=== PATIENT | male | born 1960 | race Caucasian/White ===

== ENCOUNTER 2016-12-19 15:41 | Emergency (ER) | payer OTHER ==
[~2016-12-19] VITALS: Ht 170.2 cm; Wt 71.0 kg
[~2016-12-19 15:41] MED LIST: ANTI-INFLAMMATORY; ASPIR 8181 M1 PO; BACTRIM,SEPT1 TABLET PO; CALCIUM CARB1 TABLET PO; CHOLESTYRAMINE P4 GM PO; CIPROFLOXACIN500 M1 PO; CLINDAMYCIN HC300 MG PO; FAMOTIDINE20 MG PO; FOLIC ACID1 MG PO; HYDROCODON-ACE1 EAC7 PO; KEFLEX500 MG PO; LEVAQUIN500 MG PO; MAG-OXIDE400 MG PO; METRONIDAZOLE500 MG PO; MOTRIN800 MG PO; NAPROSYN500 MG PO; NAPROXEN500 MG PO; NEURONTIN300 MG PO; NICOTINE PATCH1 EAC2 TD; NORCO 5/3251 TABLET PO; POTASSIUM CHLO20 ME1 PO; THERAGRAN1 TABLET PO; TRAMADOL HCL50 MG PO; VANCOCIN HCL125 MG PO; VITAMIN B-1100 MG PO; denies home meds
[2016-12-19 16:19] LABS: HEMATOCRIT 40.4 % (38.0-50.0); MCH 31.8 PG (29.0-34.0); MCHC 34.4 G/DL (30.0-36.0); MCV 92.4 FL (86-99); MEAN PLAT.VOLUME 8.4 uM^3 (9.0-12.4); PLATELET COUNT 229 K/uL (156-360); RBC DIS.WIDTH-CV 12.9 % (11.8-14.6); RBC DIS.WIDTH-SD 42.6 % (39-53); RED BLOOD COUNT 4.37 M/uL (4.00-5.50); WHITE BLOOD COUNT 5.1 K/uL (4.1-10.2)
[2016-12-19 16:31] LABS: CHLORIDE 101 mEq/L (99-109); POTASSIUM 4.1 mEq/L (3.7-5.4); SODIUM 142 mEq/L (136-147)
[2016-12-19 16:32] LABS: GLUCOSE 143 mg/dL (70-99)
[2016-12-19 16:34] LABS: ANION GAP 15 MEQ/L (2-14)
[2016-12-19 16:36] LABS: GFR ESTIMATE (CALCULATED) > 59 mL/min/
[2016-12-19 16:37] LABS: UREA NITROGEN (BUN) 7 mg/dL (9-23)
[2016-12-19 16:40] LABS: TROP-I INTERPRETATION NEGATIVE; TROPONIN-I 0.02 ng/mL (0.0-0.30)
[2016-12-19 17:40] VITALS: BP 124/70
== END 2016-12-19 18:14 | disposition home or self-care (01) ==
LOC: EME → EDBD 15:41 → EME 15:41
PROVIDERS: Emergency Medicine
DX: R07.89 Other chest pain (principal); F10.229 Alcohol dependence with intoxication, unspecified; Z91.14 Patient's other noncompliance with medication regimen
CPT/HCPCS: 71020; 80048; 83880; 84484; 85027; 93005; 99281; 99285

== ENCOUNTER 2017-01-15 12:15 | Inpatient (IN) | payer OTHER ==
[~2017-01-15] VITALS: Ht 170.2 cm; Wt 51.8 kg
[2017-01-15 13:24] LABS: EOSINOPHIL (%) 0.3 % (0-5); HEMATOCRIT 39.7 % (38.0-50.0); IMMATURE GRANULOCYTE (%) 0.2 % (0.0-0.7); INSTRUMENT ABS NEUTROPHIL CT 4.6 K/uL; LYMPHOCYTE COUNT 1.4 K/uL (1.0-2.8); MCH 32.1 PG (29.0-34.0); MCV 94.5 FL (86-99); MONOCYTE (%) 6.9 % (3-12); MONOCYTE COUNT 0.5 K/uL (0-0.8); NEUTROPHIL COUNT 4.6 K/uL (1.8-6.4); PLATELET COUNT 182 K/uL (156-360); RBC DIS.WIDTH-CV 12.5 % (11.8-14.6); RBC DIS.WIDTH-SD 43.6 % (39-53); WHITE BLOOD COUNT 6.5 K/uL (4.1-10.2)
[2017-01-15 13:34] LABS: CHLORIDE 97 mEq/L (99-109); POTASSIUM 3.5 mEq/L (3.7-5.4); SODIUM 139 mEq/L (136-147)
[2017-01-15 13:35] LABS: MAGNESIUM 2.2 mg/dL (1.3-2.7)
[2017-01-15 13:36] LABS: D-DIMER ELISA 1.31 mg/L FEU (< 0.57); GLUCOSE 103 mg/dL (70-99); PROTHROMBIN TIME 10.1 (9.2-11.2); PTT 28.4 (25-32)
[2017-01-15 13:37] LABS: ANION GAP 19 MEQ/L (2-14)
[2017-01-15 13:39] LABS: SERUM ETHYL ALCOHOL 333 mg/dL
[2017-01-15 13:40] LABS: GFR ESTIMATE (CALCULATED) > 59 mL/min/
[2017-01-15 13:41] LABS: UREA NITROGEN (BUN) 11 mg/dL (9-23)
[2017-01-15 13:45] LABS: TROP-I INTERPRETATION NEGATIVE; TROPONIN-I 0.03 ng/mL (0.0-0.30)
[2017-01-15] MEDS ORDERED: HYDROCODON-ACE1 EAC9 PO (18:14)
[2017-01-15] MEDS ORDERED: GABAPENTIN600 MG PO (18:14)
[2017-01-15] MEDS ORDERED: LO-DOSE ASPIRIN81 M2 PO (18:14)
[2017-01-15 21:48] LABS: TROP-I INTERPRETATION NEGATIVE; TROPONIN-I 0.02 ng/mL (0.0-0.30)
[2017-01-15 22:30] VITALS: BP 145/75
[2017-01-15 22:49] LABS: HDL CHOLESTEROL 75 MG/DL (Desirable>=40); LDL CHOLESTEROL 92 mg/dL (Desirable<100); NON-HDL CHOLESTEROL 99 mg/dL (Desirable<160); TOTAL CHOLESTEROL 174 mg/dL (Desirable<200); TRIGLYCERIDES 36 MG/DL (Normal: <150)
[2017-01-16 00:15] VITALS: BP 107/74
[2017-01-16 04:21] LABS: TROP-I INTERPRETATION NEGATIVE; TROPONIN-I 0.02 ng/mL (0.0-0.30)
[2017-01-16 04:55] VITALS: BP 136/81
[2017-01-16 09:00] VITALS: BP 158/92
[2017-01-16 09:27] LABS: ANION GAP 8 MEQ/L (2-14); CHLORIDE 100 MEQ/L (99-109); POTASSIUM 3.9 MEQ/L (3.7-5.4); SAMPLE HEMOLYSIS CHECK 0; SAMPLE ICTERIC CHECK 0; SAMPLE LIPEMIA CHECK 0; SODIUM 137 MEQ/L (136-147); TOTAL BILIRUBIN 1.3 MG/DL (0.0-1.0)
[2017-01-16 09:33] LABS: ALKALINE PHOSPHATASE 79 IU/L (3-129); GFR ESTIMATE (CALCULATED) > 59 mL/min/; GLUCOSE 103 mg/dL (70-99); LIPASE 52 U/L (1.0-51.0); UREA NITROGEN (BUN) 11 mg/dL (9-23)
[2017-01-16 12:00] VITALS: BP 174/84
[2017-01-16 15:44] VITALS: BP 159/89
[2017-01-16 19:34] VITALS: BP 140/74
[2017-01-17 00:16] VITALS: BP 151/83
[2017-01-17 04:30] VITALS: BP 130/77
[2017-01-17 07:01] LABS: ALKALINE PHOSPHATASE 70 IU/L (3-129); ANION GAP 9 MEQ/L (2-14); CHLORIDE 100 MEQ/L (99-109); GFR ESTIMATE (CALCULATED) > 59 mL/min/; POTASSIUM 3.4 MEQ/L (3.7-5.4); SAMPLE HEMOLYSIS CHECK 0; SAMPLE ICTERIC CHECK 0; SAMPLE LIPEMIA CHECK 0; SODIUM 135 MEQ/L (136-147); UREA NITROGEN (BUN) 11 mg/dL (9-23)
[2017-01-17 07:02] LABS: GLUCOSE 190 mg/dL (70-99)
[2017-01-17 07:25] LABS: EOSINOPHIL (%) 6.3 % (0-5); EOSINOPHIL COUNT 0.3 K/uL (0-0.3); HEMATOCRIT 37.6 % (38.0-50.0); IMMATURE GRANULOCYTE (%) 0.2 % (0.0-0.7); INSTRUMENT ABS NEUTROPHIL CT 3.1 K/uL; MCH 31.8 PG (29.0-34.0); MCHC 33.5 G/DL (30.0-36.0); MCV 94.9 FL (86-99); MONOCYTE (%) 5.6 % (3-12); MONOCYTE COUNT 0.3 K/uL (0-0.8); NEUTROPHIL (%) 66.3 % (45-76); NEUTROPHIL COUNT 3.1 K/uL (1.8-6.4); RBC DIS.WIDTH-CV 12.3 % (11.8-14.6); RBC DIS.WIDTH-SD 43.4 % (39-53); RED BLOOD COUNT 3.96 M/uL (4.00-5.50); WHITE BLOOD COUNT 4.6 K/uL (4.1-10.2)
[2017-01-17 08:09] VITALS: BP 135/86
[2017-01-17 08:09] LABS: MEAN PLAT.VOLUME 10.6 uM^3 (9.0-12.4); PLAT.SUFFICIENCY DECREASED
[2017-01-17 08:13] LABS: PLATELET COUNT 110 K/uL (156-360)
[2017-01-17 11:39] VITALS: BP 134/76
[2017-01-17 19:55] VITALS: BP 133/74
[2017-01-17 23:23] VITALS: BP 126/69
[2017-01-18 04:00] VITALS: BP 119/73
[2017-01-18 06:45] LABS: EOSINOPHIL (%) 7.8 % (0-5); EOSINOPHIL COUNT 0.3 K/uL (0-0.3); HEMATOCRIT 37.6 % (38.0-50.0); IMMATURE GRANULOCYTE (%) 0.2 % (0.0-0.7); LYMPHOCYTE COUNT 1.3 K/uL (1.0-2.8); MCH 31.5 PG (29.0-34.0); MCHC 32.7 G/DL (30.0-36.0); MCV 96.4 FL (86-99); MEAN PLAT.VOLUME 10.7 uM^3 (9.0-12.4); MONOCYTE (%) 9.3 % (3-12); MONOCYTE COUNT 0.4 K/uL (0-0.8); NEUTROPHIL (%) 50.1 % (45-76); PLATELET COUNT 103 K/uL (156-360); RBC DIS.WIDTH-CV 12.3 % (11.8-14.6); RBC DIS.WIDTH-SD 43.4 % (39-53); WHITE BLOOD COUNT 4.1 K/uL (4.1-10.2)
[2017-01-18 08:00] VITALS: BP 122/79
[2017-01-18 08:58] LABS: CHLORIDE 103 mEq/L (99-109)
[2017-01-18 08:59] LABS: MAGNESIUM 2.1 mg/dL (1.3-2.7); POTASSIUM 3.7 mEq/L (3.7-5.4); SODIUM 140 mEq/L (136-147)
[2017-01-18 09:02] LABS: ANION GAP 9 MEQ/L (2-14); GLUCOSE 108 mg/dL (70-99)
[2017-01-18 09:03] LABS: TOTAL BILIRUBIN 0.7 mg/dL (0.0-1.0)
[2017-01-18 09:04] LABS: ALKALINE PHOSPHATASE 77 IU/L (3-129)
[2017-01-18 09:05] LABS: GFR ESTIMATE (CALCULATED) > 59 mL/min/
[2017-01-18 09:06] LABS: UREA NITROGEN (BUN) 16 mg/dL (9-23)
[2017-01-18 12:30] LABS: HBSG INDEX 0.18
[2017-01-18 12:31] LABS: HPCA INDEX 0.12
[2017-01-18 12:32] LABS: ANTI-HEPATITIS A VIRUS (IGM) Nonreactive; HAV INDEX 0.14
[2017-01-18 12:33] LABS: ANTI-HEPATITIS B CORE (IGM) Nonreactive; HBC IgM INDEX 0.05
[2017-01-18 12:46] VITALS: BP 112/68
[2017-01-18 16:04] VITALS: BP 109/63
[2017-01-18 20:00] VITALS: BP 128/74
[2017-01-19] VITALS: BP 114/66
[2017-01-19 04:00] VITALS: BP 108/63
[2017-01-19 07:24] LABS: EOSINOPHIL (%) 6.7 % (0-5); EOSINOPHIL COUNT 0.3 K/uL (0-0.3); HEMATOCRIT 38.4 % (38.0-50.0); IMMATURE GRANULOCYTE (%) 0.2 % (0.0-0.7); INSTRUMENT ABS NEUTROPHIL CT 2.6 K/uL; LYMPHOCYTE COUNT 1.6 K/uL (1.0-2.8); MCH 31.3 PG (29.0-34.0); MCHC 32.6 G/DL (30.0-36.0); MEAN PLAT.VOLUME 10.3 uM^3 (9.0-12.4); MONOCYTE (%) 9.5 % (3-12); MONOCYTE COUNT 0.5 K/uL (0-0.8); NEUTROPHIL (%) 52.1 % (45-76); NEUTROPHIL COUNT 2.6 K/uL (1.8-6.4); PLATELET COUNT 127 K/uL (156-360); RBC DIS.WIDTH-CV 12.1 % (11.8-14.6); RBC DIS.WIDTH-SD 42.8 % (39-53); WHITE BLOOD COUNT 5.1 K/uL (4.1-10.2)
[2017-01-19 07:33] LABS: ALKALINE PHOSPHATASE 76 IU/L (3-129); ANION GAP 9 MEQ/L (2-14); CHLORIDE 104 MEQ/L (99-109); GFR ESTIMATE (CALCULATED) > 59 mL/min/; GLUCOSE 115 mg/dL (70-99); MAGNESIUM 1.9 mg/dl (1.3-2.7); POTASSIUM 3.9 MEQ/L (3.7-5.4); SAMPLE HEMOLYSIS CHECK 0; SAMPLE ICTERIC CHECK 0; SAMPLE LIPEMIA CHECK 0; SODIUM 141 MEQ/L (136-147); UREA NITROGEN (BUN) 24 mg/dL (9-23)
[2017-01-19 07:34] LABS: TOTAL BILIRUBIN 0.6 MG/DL (0.0-1.0)
[2017-01-19 08:24] VITALS: BP 123/68
[2017-01-19 09:15] LABS: CREATINE KINASE 42 IU/L (1-294)
[2017-01-19 12:05] VITALS: BP 115/57
[2017-01-19 17:24] VITALS: BP 91/58
[2017-01-19 20:00] VITALS: BP 109/57
[2017-01-20] VITALS: BP 109/63
[2017-01-20 04:00] VITALS: BP 100/56
[2017-01-20 06:53] LABS: EOSINOPHIL (%) 6.3 % (0-5); EOSINOPHIL COUNT 0.3 K/uL (0-0.3); HEMATOCRIT 37.5 % (38.0-50.0); IMMATURE GRANULOCYTE (%) 0.2 % (0.0-0.7); INSTRUMENT ABS NEUTROPHIL CT 2.5 K/uL; LYMPHOCYTE COUNT 1.9 K/uL (1.0-2.8); MCH 31.4 PG (29.0-34.0); MCHC 32.3 G/DL (30.0-36.0); MCV 97.4 FL (86-99); MEAN PLAT.VOLUME 10.6 uM^3 (9.0-12.4); MONOCYTE (%) 9.9 % (3-12); MONOCYTE COUNT 0.5 K/uL (0-0.8); NEUTROPHIL (%) 47.4 % (45-76); NEUTROPHIL COUNT 2.5 K/uL (1.8-6.4); PLATELET COUNT 139 K/uL (156-360); RBC DIS.WIDTH-CV 12.3 % (11.8-14.6); RBC DIS.WIDTH-SD 43.8 % (39-53); RED BLOOD COUNT 3.85 M/uL (4.00-5.50); WHITE BLOOD COUNT 5.3 K/uL (4.1-10.2)
[2017-01-20 07:05] VITALS: BP 101/65
[2017-01-20 07:47] LABS: ALKALINE PHOSPHATASE 67 IU/L (3-129); ANION GAP 8 MEQ/L (2-14); CHLORIDE 102 MEQ/L (99-109); GFR ESTIMATE (CALCULATED) > 59 mL/min/; GLUCOSE 111 mg/dL (70-99); MAGNESIUM 1.9 mg/dl (1.3-2.7); SAMPLE HEMOLYSIS CHECK 0; SAMPLE ICTERIC CHECK 0; SAMPLE LIPEMIA CHECK 0; SODIUM 140 MEQ/L (136-147); UREA NITROGEN (BUN) 22 mg/dL (9-23)
[2017-01-20 07:49] LABS: TOTAL BILIRUBIN 0.4 MG/DL (0.0-1.0)
[2017-01-20 16:23] VITALS: BP 118/67
[2017-01-20 20:29] VITALS: BP 124/67
[2017-01-20 20:48] VITALS: BP 114/69
[2017-01-21 04:01] VITALS: BP 100/53
[2017-01-21 08:12] VITALS: BP 102/59
[2017-01-21 11:26] VITALS: BP 115/70
[2017-01-21 16:04] VITALS: BP 119/71
[2017-01-21 23:31] VITALS: BP 118/57
[2017-01-22 08:15] VITALS: BP 132/60
[2017-01-22] MEDS ORDERED: PANTOPRAZOLE SO40 MG PO (13:54)
[2017-01-22] MEDS ORDERED: Thiamine,Vitamin B1 PO (13:54)
[2017-01-22] MEDS ORDERED: Chronulac,Cephulac,E PO (13:54)
[2017-01-22] MEDS ORDERED: LOPRESSOR25 MG PO (13:54)
[2017-01-22] MEDS ORDERED: THERAGRAN1 TABLET PO (13:54)
[2017-01-22] MEDS ORDERED: SUCRALFATE1 GM PO (13:54)
[2017-01-22] MEDS ORDERED: FOLIC ACID1 MG PO (13:54)
== END 2017-01-22 15:15 | disposition home or self-care (01) | DRG 897 ==
LOC: EME → EDBD 12:15 → EDOF 20:23 → 5WEST 20:23 → 5SOUTH 01-20 21:52
PROVIDERS: Emergency Medicine; Internal Medicine; Physician Assistant Medical
DX: F10.239 Alcohol dependence with withdrawal, unspecified (principal); F31.89 Other bipolar disorder; D61.818 Other pancytopenia; M87.9 Osteonecrosis, unspecified; M84.459A Pathological fracture, hip, unspecified, initial encounter for fracture; D69.59 Other secondary thrombocytopenia; G62.1 Alcoholic polyneuropathy; F41.9 Anxiety disorder, unspecified; F17.210 Nicotine dependence, cigarettes, uncomplicated; G89.29 Other chronic pain; M54.12 Radiculopathy, cervical region; M16.12 Unilateral primary osteoarthritis, left hip; I45.10 Unspecified right bundle-branch block; R07.89 Other chest pain; F10.229 Alcohol dependence with intoxication, unspecified; K70.10 Alcoholic hepatitis without ascites; Y90.8 Blood alcohol level of 240 mg/100 ml or more; F12.10 Cannabis abuse, uncomplicated; K29.20 Alcoholic gastritis without bleeding; E87.6 Hypokalemia; K80.80 Other cholelithiasis without obstruction
CPT/HCPCS: 71010; 71275; 72100; 72148; 73522; 73721; 74220; 76705; 80048; 80053; 80061; 80074; 82140; 82550; 83690; 83735; 84484; 85025; 85379; 85610; 85730; 93005; 93970; 99281; 99285; C9113; G0378; G0480; J1650; J1885; J2060; J3411; J3475; J7030; J7040; S0028

== ENCOUNTER 2017-01-23 22:40 | Emergency (ER) | payer OTHER ==
[~2017-01-23] VITALS: Ht 170.2 cm; Wt 67.4 kg
[~2017-01-23 22:40] MED LIST changes: +Chronulac,Cephulac,E PO; +GABAPENTIN600 MG PO; +HYDROCODON-ACE1 EAC9 PO; +LO-DOSE ASPIRIN81 M2 PO; +LOPRESSOR25 MG PO; +PANTOPRAZOLE SO40 MG PO; +SUCRALFATE1 GM PO; +Thiamine,Vitamin B1 PO
[2017-01-24 00:10] VITALS: BP 133/71
[2017-01-24] MEDS ORDERED: LEVAQUIN500 MG PO (23:03)
== END 2017-01-24 00:11 | disposition home or self-care (01) ==
LOC: EME 22:40
DX: F10.129 Alcohol abuse with intoxication, unspecified (principal); M25.562 Pain in left knee; G89.29 Other chronic pain; Z79.82 Long term (current) use of aspirin
CPT/HCPCS: 99281; 99283

== ENCOUNTER 2017-01-24 19:09 | Emergency (ER) | payer OTHER ==
[~2017-01-24] VITALS: Ht 170.2 cm; Wt 67.4 kg
[2017-01-24 20:01] LABS: HEMATOCRIT 38.2 % (38.0-50.0); MCH 31.8 PG (29.0-34.0); MCHC 33.2 G/DL (30.0-36.0); MCV 95.7 FL (86-99); MEAN PLAT.VOLUME 9.2 uM^3 (9.0-12.4); PLATELET COUNT 261 K/uL (156-360); RBC DIS.WIDTH-CV 12.7 % (11.8-14.6); RBC DIS.WIDTH-SD 44.2 % (39-53); RED BLOOD COUNT 3.99 M/uL (4.00-5.50); WHITE BLOOD COUNT 4.9 K/uL (4.1-10.2)
[2017-01-24 20:18] LABS: TROP-I INTERPRETATION NEGATIVE; TROPONIN-I 0.01 ng/mL (0.0-0.30)
[2017-01-24 20:21] LABS: CHLORIDE 109 mEq/L (99-109); POTASSIUM 3.6 mEq/L (3.7-5.4); SODIUM 147 mEq/L (136-147)
[2017-01-24 20:22] LABS: GLUCOSE 107 mg/dL (70-99)
[2017-01-24 20:24] LABS: ANION GAP 14 MEQ/L (2-14)
[2017-01-24 20:26] LABS: GFR ESTIMATE (CALCULATED) > 59 mL/min/
[2017-01-24 20:27] LABS: UREA NITROGEN (BUN) 9 mg/dL (9-23)
[2017-01-24 22:42] LABS: TROP-I INTERPRETATION NEGATIVE; TROPONIN-I < 0.01 ng/mL (0.0-0.30)
[2017-01-24] MEDS ORDERED: LEVAQUIN500 MG PO (23:03)
[2017-01-24 23:28] VITALS: BP 124/69
== END 2017-01-24 23:49 | disposition home or self-care (01) ==
LOC: EME 19:09
PROVIDERS: Emergency Medicine
DX: J18.9 Pneumonia, unspecified organism (principal); R07.9 Chest pain, unspecified; J45.909 Unspecified asthma, uncomplicated; G89.29 Other chronic pain; I10 Essential (primary) hypertension; R56.9 Unspecified convulsions; M06.9 Rheumatoid arthritis, unspecified; Z86.74 Personal history of sudden cardiac arrest; Z79.82 Long term (current) use of aspirin
CPT/HCPCS: 71020; 80048; 84484; 85027; 93005; 99281; 99284

== ENCOUNTER 2017-02-09 14:33 | Emergency (ER) | payer OTHER ==
[~2017-02-09] VITALS: Ht 175.3 cm; Wt 66.7 kg
[2017-02-09 15:00] LABS: HEMATOCRIT 39.2 % (38.0-50.0); MCH 32.4 PG (29.0-34.0); MCHC 33.9 G/DL (30.0-36.0); MCV 95.6 FL (86-99); MEAN PLAT.VOLUME 8.9 uM^3 (9.0-12.4); RBC DIS.WIDTH-CV 13.9 % (11.8-14.6); RBC DIS.WIDTH-SD 48.1 % (39-53); WHITE BLOOD COUNT 5.7 K/uL (4.1-10.2)
[2017-02-09 15:06] LABS: CHLORIDE 100 mEq/L (99-109); POTASSIUM 3.3 mEq/L (3.7-5.4); SODIUM 141 mEq/L (136-147)
[2017-02-09 15:07] LABS: MAGNESIUM 1.8 mg/dL (1.3-2.7); PROTHROMBIN TIME 10.2 (9.2-11.2); PTT 27.7 (25-32)
[2017-02-09 15:08] LABS: GLUCOSE 121 mg/dL (70-99)
[2017-02-09 15:10] LABS: ANION GAP 20 MEQ/L (2-14)
[2017-02-09 15:11] LABS: SERUM ETHYL ALCOHOL 179 mg/dL
[2017-02-09 15:12] LABS: GFR ESTIMATE (CALCULATED) > 59 mL/min/
[2017-02-09 15:13] LABS: UREA NITROGEN (BUN) 9 mg/dL (9-23)
[2017-02-09 15:21] LABS: TROP-I INTERPRETATION NEGATIVE
[2017-02-09 15:35] LABS: EOSINOPHIL (%) 0.7 % (0-5); IMMATURE GRANULOCYTE (%) 0.5 % (0.0-0.7); INSTRUMENT ABS NEUTROPHIL CT 4.6 K/uL; LYMPHOCYTE COUNT 0.7 K/uL (1.0-2.8); MONOCYTE (%) 6.7 % (3-12); MONOCYTE COUNT 0.4 K/uL (0-0.8); NEUTROPHIL (%) 80.2 % (45-76); NEUTROPHIL COUNT 4.6 K/uL (1.8-6.4); PLAT.SUFFICIENCY DECREASED
[2017-02-09 15:37] LABS: PLATELET COUNT 117 K/uL (156-360)
[2017-02-09 15:48] LABS: LIPASE 70 U/L (1.0-51.0)
[2017-02-09 18:38] LABS: TROP-I INTERPRETATION NEGATIVE; TROPONIN-I 0.18 ng/mL (0.0-0.30)
[2017-02-09 19:45] VITALS: BP 136/65
== END 2017-02-09 19:49 | disposition home or self-care (01) ==
LOC: EME 14:33
PROVIDERS: Emergency Medicine
DX: R07.9 Chest pain, unspecified (principal); R00.2 Palpitations; F10.129 Alcohol abuse with intoxication, unspecified; R00.0 Tachycardia, unspecified; M79.605 Pain in left leg; Z79.82 Long term (current) use of aspirin; Y90.6 Blood alcohol level of 120-199 mg/100 ml
CPT/HCPCS: 71010; 71020; 80048; 83690; 83735; 84484; 85025; 85610; 85730; 93005; 99281; 99285; G0480; J2060; J7030

== ENCOUNTER 2017-05-21 15:18 | Emergency (ER) | payer OTHER ==
[~2017-05-21] VITALS: Ht 172.7 cm; Wt 69.3 kg
[2017-05-21 16:14] LABS: EOSINOPHIL (%) 1.8 % (0-5); EOSINOPHIL COUNT 0.1 K/uL (0-0.3); HEMATOCRIT 40.1 % (38.0-50.0); LYMPHOCYTE COUNT 1.7 K/uL (1.0-2.8); MCH 32.5 PG (29.0-34.0); MCHC 34.4 G/DL (30.0-36.0); MCV 94.4 FL (86-99); MEAN PLAT.VOLUME 9.1 uM^3 (9.0-12.4); MONOCYTE (%) 6.1 % (3-12); MONOCYTE COUNT 0.3 K/uL (0-0.8); NEUTROPHIL (%) 58.2 % (45-76); PLATELET COUNT 205 K/uL (156-360); RBC DIS.WIDTH-CV 12.1 % (11.8-14.6); RBC DIS.WIDTH-SD 41.9 % (39-53); RED BLOOD COUNT 4.25 M/uL (4.00-5.50); WHITE BLOOD COUNT 5.1 K/uL (4.1-10.2)
[2017-05-21 16:22] LABS: CHLORIDE 100 mEq/L (99-109); POTASSIUM 3.7 mEq/L (3.7-5.4); SODIUM 140 mEq/L (136-147)
[2017-05-21 16:24] LABS: GLUCOSE 99 mg/dL (70-99)
[2017-05-21 16:25] LABS: ANION GAP 19 MEQ/L (2-14)
[2017-05-21 16:27] LABS: SERUM ETHYL ALCOHOL 248 mg/dL
[2017-05-21 16:28] LABS: GFR ESTIMATE (CALCULATED) > 59 mL/min/
[2017-05-21 16:29] LABS: UREA NITROGEN (BUN) 9 mg/dL (9-23)
[2017-05-21 16:36] LABS: TROP-I INTERPRETATION NEGATIVE; TROPONIN-I 0.03 ng/mL (0.0-0.30)
[2017-05-21 17:48] LABS: TROP-I INTERPRETATION NEGATIVE; TROPONIN-I < 0.01 ng/mL (0.0-0.30)
[2017-05-21 19:05] VITALS: BP 103/60
== END 2017-05-21 19:12 | disposition home or self-care (01) ==
LOC: EME → EDBD 15:18 → EME 19:12
PROVIDERS: Emergency Medicine
DX: R07.89 Other chest pain (principal); F10.129 Alcohol abuse with intoxication, unspecified; Y90.8 Blood alcohol level of 240 mg/100 ml or more; I10 Essential (primary) hypertension; J45.909 Unspecified asthma, uncomplicated; I25.2 Old myocardial infarction; Z86.74 Personal history of sudden cardiac arrest; G89.29 Other chronic pain; M54.9 Dorsalgia, unspecified
CPT/HCPCS: 71010; 80048; 84484; 85025; 93005; 99281; 99285; G0480; J1885

== ENCOUNTER 2017-05-29 10:14 | Emergency (ER) | payer OTHER ==
[~2017-05-29] VITALS: Ht 170.2 cm; Wt 67.9 kg
[2017-05-29 11:03] LABS: ADD MIUA? YES; BILIRUBIN NEGATIVE; BLOOD SMALL; COLOR STRAW ((YELLOW)); GLUCOSE (STRIP) NEGATIVE; KETONES NEGATIVE; LEUKOCYTES LARGE; NITRITE NEGATIVE; PROTEIN (STRIP) NEGATIVE; SPECIFIC GRAVITY 1.004 (1.000-1.030); UROBILINOGEN 0.2 MG/DL (0.2-1.0)
[2017-05-29] MEDS ORDERED: HYDROCODON-ACE1 EAC7 PO (11:11)
[2017-05-29] MEDS ORDERED: GABAPENTIN600 MG PO (11:11)
[2017-05-29] MEDS ORDERED: MORPHINE SULFAT15 M1 PO (11:11)
[2017-05-29 11:14] LABS: HEMATOCRIT 36.8 % (38.0-50.0); MCH 32.6 PG (29.0-34.0); MCHC 34.5 G/DL (30.0-36.0); MCV 94.6 FL (86-99); MEAN PLAT.VOLUME 9.4 uM^3 (9.0-12.4); PLATELET COUNT 152 K/uL (156-360); RBC DIS.WIDTH-CV 11.9 % (11.8-14.6); RBC DIS.WIDTH-SD 41.9 % (39-53); RED BLOOD COUNT 3.89 M/uL (4.00-5.50); WHITE BLOOD COUNT 5.7 K/uL (4.1-10.2)
[2017-05-29 11:14] LABS: BACTERIA NONE SEEN /HPF; CALCIUM OXALATE CRYSTALS 1+ /HPF; EPITHELIAL CELLS RARE /HPF; MUCUS NONE SEEN /LPF; WHITE BLOOD CELLS TNTC /HPF (0-5)
[2017-05-29 11:19] LABS: AMPHETAMINE NEGATIVE (500 ng/mL); BARBITURATES NEGATIVE (200 ng/mL); BENZODIAZEPINES NEGATIVE (150 ng/mL); COCAINE NEGATIVE (150 ng/mL); INTERNAL CONTROLS VALID? YES; METHADONE NEGATIVE (200 ng/mL); METHAMPHETAMINE NEGATIVE (500 ng/mL); OPIATES (MORPHINE) NEGATIVE (100 ng/mL); OXYCODONE NEGATIVE (100 ng/mL); PHENCYCLIDINE NEGATIVE (25 ng/mL); PROPOXYPHENE NEGATIVE (300 ng/mL); THC CANNABINOIDS NEGATIVE (50 ng/mL); TRICYCLIC ANTIDEPRESSANTS NEGATIVE (300 ng/mL)
[2017-05-29 11:26] LABS: CHLORIDE 97 mEq/L (99-109); POTASSIUM 3.6 mEq/L (3.7-5.4); SODIUM 137 mEq/L (136-147)
[2017-05-29 11:28] LABS: GLUCOSE 111 mg/dL (70-99)
[2017-05-29 11:29] LABS: ANION GAP 15 MEQ/L (2-14)
[2017-05-29 11:30] LABS: TOTAL BILIRUBIN 0.6 mg/dL (0.0-1.0)
[2017-05-29 11:31] LABS: SERUM ETHYL ALCOHOL 319 mg/dL
[2017-05-29 11:32] LABS: ALKALINE PHOSPHATASE 87 IU/L (3-129); GFR ESTIMATE (CALCULATED) > 59 mL/min/
[2017-05-29 11:33] LABS: UREA NITROGEN (BUN) 6 mg/dL (9-23)
[2017-05-29] MEDS ORDERED: CEFDINIR300 MG PO (13:23)
[2017-05-29 21:04] VITALS: BP 123/69
== END 2017-05-29 21:04 | disposition home or self-care (01) ==
LOC: EME 10:14
PROVIDERS: Emergency Medicine
DX: F10.129 Alcohol abuse with intoxication, unspecified (principal); Y90.8 Blood alcohol level of 240 mg/100 ml or more; F32.9 Major depressive disorder, single episode, unspecified; I10 Essential (primary) hypertension; J45.909 Unspecified asthma, uncomplicated; I25.2 Old myocardial infarction; Z86.74 Personal history of sudden cardiac arrest; M06.9 Rheumatoid arthritis, unspecified; Z79.82 Long term (current) use of aspirin
CPT/HCPCS: 80053; 81003; 85027; 90837; 99281; 99285; G0480

== ENCOUNTER 2018-02-01 21:46 | Inpatient (IN) | payer OTHER ==
[~2018-02-01] VITALS: Ht 170.2 cm; Wt 78.1 kg
[~2018-02-01 21:46] MED LIST changes: +CEFDINIR300 MG PO; +MORPHINE SULFAT15 M1 PO
[2018-02-02 09:58] VITALS: BP 163/82
[2018-02-02 15:58] LABS: MCH 32.1 PG (29.0-34.0); MCHC 33.3 G/DL (30.0-36.0); MCV 96.3 FL (86-99); PLATELET COUNT 186 K/uL (156-360); RBC DIS.WIDTH-CV 12.4 % (11.8-14.6); RBC DIS.WIDTH-SD 43.5 % (39-53); RED BLOOD COUNT 3.74 M/uL (4.00-5.50); WHITE BLOOD COUNT 7.2 K/uL (4.1-10.2)
[2018-02-02 21:33] VITALS: BP 141/78
[2018-02-03] VITALS: BP 148/77
[2018-02-03 03:57] VITALS: BP 114/61
[2018-02-03 06:02] LABS: CHLORIDE 106 MEQ/L (99-109); CREATININE 0.7 MG/DL (0.6-1.3); GFR ESTIMATE (CALCULATED) > 59 mL/min/ (58.99-99999); GLUCOSE 112 mg/dL (70-99); POTASSIUM 3.4 MEQ/L (3.7-5.4); SODIUM 141 MEQ/L (136-147); UREA NITROGEN (BUN) 16 mg/dL (9-23)
[2018-02-03 11:14] VITALS: BP 114/67
[2018-02-03 14:50] LABS: HEMATOCRIT 37.4 % (38.0-50.0); HEMOGLOBIN 12.3 G/DL (12.5-16.6); MCV 96.4 FL (86-99)
[2018-02-03 15:55] VITALS: BP 133/63
[2018-02-03 23:27] VITALS: BP 138/64
[2018-02-04 07:06] VITALS: BP 131/71
[2018-02-04 10:15] VITALS: BP 118/63
[2018-02-04 15:51] VITALS: BP 136/66
[2018-02-04 23:58] VITALS: BP 99/54
[2018-02-05 07:49] VITALS: BP 112/64
[2018-02-05] MEDS ORDERED: LOVENOX40 MG/0.4 SC (08:27)
[2018-02-05] MEDS ORDERED: SENNA PLUS TAB1 EACH PO (08:27)
[2018-02-05] MEDS ORDERED: HYDROCODON-ACE1 EAC7 PO (08:27)
[2018-02-05 10:14] VITALS: BP 123/63
== END 2018-02-05 15:23 | DRG 470 ==
LOC: ENRESERV 21:46 → CANRESERV 21:46 → 2SOUTH 02-02 09:20 → 3EAST 02-02 09:20 → 2SOUTH 02-02 09:45 → ENRESERV 02-02 13:08 → CANRESERV 02-02 13:08 → ENRESERV 02-02 13:17 → 3EAST 02-02 20:25
PROVIDERS: Orthopaedic Surgery
PROC: 0SRB0JA Replacement of Left Hip Joint with Synthetic Substitute, Uncemented, Open Approach (ICD-10-PCS; principal; 2018-02-02)
DX: M87.9 Osteonecrosis, unspecified (principal); M16.12 Unilateral primary osteoarthritis, left hip; I10 Essential (primary) hypertension; G89.29 Other chronic pain; M54.9 Dorsalgia, unspecified; F17.220 Nicotine dependence, chewing tobacco, uncomplicated; Z79.891 Long term (current) use of opiate analgesic; Z79.82 Long term (current) use of aspirin
CPT/HCPCS: 71045; 73501; 80048; 85014; 85018; 85027; 87641; 97530 GP; J0131; J0690; J1170; J1650; J2250; J2405; J7050